=== PATIENT | female | born 1960 | race Caucasian/White ===

== ENCOUNTER → 2024-02-08 18:33 | Outpatient (REF) | payer OTHER, SELFPAY | LOC: RAD 18:33 | PROVIDERS: ATTENDING PHYSICIAN Chiropractor; FAMILY PHYSICIAN Family Medicine | DX: M99.01 Segmental and somatic dysfunction of cervical region (principal); M99.03 Segmental and somatic dysfunction of lumbar region | CPT/HCPCS: 72050; 72110 ==

== ENCOUNTER → 2024-02-25 11:09 | Outpatient (REF) | payer OTHER, SELFPAY | LOC: WDC 11:09 | PROVIDERS: ATTENDING PHYSICIAN Obstetrics & Gynecology; FAMILY PHYSICIAN Family Medicine | DX: Z12.31 Encounter for screening mammogram for malignant neoplasm of breast (principal) | CPT/HCPCS: 77063; 77067 ==

== ENCOUNTER → 2024-04-11 17:07 | Outpatient (REF) | payer OTHER, SELFPAY | LOC: RAD 17:07 | PROVIDERS: ATTENDING PHYSICIAN Chiropractor; FAMILY PHYSICIAN Family Medicine | DX: M99.06 Segmental and somatic dysfunction of lower extremity (principal) | CPT/HCPCS: 73502 ==

== ENCOUNTER → 2024-05-01 15:03 | Outpatient (REF) | payer OTHER, SELFPAY | LOC: PAVMRI 15:03 | PROVIDERS: ATTENDING PHYSICIAN Chiropractor; FAMILY PHYSICIAN Family Medicine | DX: M99.06 Segmental and somatic dysfunction of lower extremity (principal) | CPT/HCPCS: 73721 ==

== ENCOUNTER 2024-12-20 08:22 | Emergency (ER) | payer OTHER, SELFPAY ==
[2024-12-20 08:31] VITALS: BP 143/100
[2024-12-20 08:53] VITALS: BP 116/87
[2024-12-20 09:00] VITALS: BP 109/81
[2024-12-20] MEDS: ZOFRAN 4 MG IV (09:01)
[2024-12-20] MEDS: NSS 1000 IV (09:01)
[2024-12-20] MEDS: PROTONIX IV 40 MG IV (09:01)
[2024-12-20 09:05] LABS: Hematocrit 40.3 % (37.0-47.0); Hemoglobin 14.5 g/dL (12.0-16.0); Mean Corp Hgb Conc. 36.0 g/dL (33.0-37.0); Mean Corpuscular Volume 88.6 fL (81.0-99.0); Nucleated Red Blood Cells % 0 %; Platelet Count 236 10^3/uL (130-400); Red Cell Dist. Width 12.1 % (11.5-14.5)
[2024-12-20 09:19] LABS: ALT (SGPT) 31 U/L (0-35); AST (SGOT) 32 U/L (14-36); Albumin 4.4 g/dl (3.5-5.0); Alkaline Phosphatase 58 U/L (38-126); Blood Urea Nitrogen 18 mg/dl (7-17); Calcium 9.6 mg/dl (8.4-10.2); Carbon Dioxide 26 mmol/L (22-30); Chloride 104 mmol/L (98-107); Glucose 85 mg/dl (70-99); Lipase 176 U/L (23-300); Potassium 4.0 mmol/L (3.5-5.1); Sodium 137 mmol/L (135-145); Total Protein 7.3 g/dl (6.3-8.2); eGFR > 60.00
[2024-12-20 09:41] LABS: Magnesium 2.1 mg/dl (1.6-2.3)
[2024-12-20 10:00] VITALS: BP 132/80
[2024-12-20] MEDS: NSS 500 IV (10:15)
[2024-12-20] MEDS: COMPAZINE 10 MG IV (10:15)
--- NOTE | 2024-12-20 10:32 | ED.GENMED ---
History of Present Illness
General
Chief Complaint: Abdominal Symptoms
Source: patient
Exam Limitations: none
Time Seen by Provider: 12/20/24 08:37
Nursing documentation reviewed up to this point in time: agreed with
History of Present Illness
History of Present Illness:
Pt presents to ED secondary to persistent nausea/vomiting over the past 24hrs and unable to keep anything down. Pt has started to notice fatigue and mild lightheadedness today, prompting her visit to ED.
Past History
Past History
ED Past Medical History: Psychiatric (Generalized anxiety disorder)
ED Past Surgical History: Gynecological
Social History
Tobacco: Non-smoker
Drug: None
Review of Systems
Review of Systems
Allergies reviewed?: Yes
All Other Systems: ROS reviewed and negative except as documented in HPI and ROS
Constitutional: Reports no symptoms
Respiratory: Reports no symptoms
Cardiac: Reports no symptoms
ABD/GI: Reports nausea and vomiting
Musculoskeletal: Reports no symptoms
Skin: Reports no symptoms
Neurological: Reports dizzy
Phy Exam
Physical Exam
Physical Exam:
General: well appearing female, in mild distress. afebrile
Heent: nc/at. eomi.
Lungs: cta
Heart: rrr. no murmur
Abd: soft and nontender. no distention
Neuro: aao x 3. no focal neurological deficit
Skin: warm to touch. no rash
Psych: pleasant and cooperative
Course
Orders/Labs/Results
Orders:
Orders
12/20/24 08:48
Complete Blood Count/With Diff Urgent
Comprehensive Metabolic Panel Urgent
Lipase Urgent
Magnesium Urgent
12/20/24 08:53
Add On- LAB Urgent
Tests Added?: magnesium
12/20/24 08:54
0.9% Sodium Chloride 1000 ml [Nss] 1,000 ml IV BOLUS
Ondansetron Injectable [Zofran] 4 mg IV NOW STA
Pantoprazole [Protonix IV] 40 mg IV NOW STA
12/20/24 08:55
Electrocardiogram (*1) Urgent
Reason for Study: QTc Monitoring
EKG- Treatment ONCE
12/20/24 10:08
Prochlorperazine [Compazine] 10 mg IV NOW STA
12/20/24 10:09
0.9% Sodium Chloride 500 ml [Nss] 500 ml IV BOLUS
Abnormal Lab Results
12/20/24
08:48
MCH 31.9 H pg
(27.0-31.0)
BUN 18 H mg/dl
(7-17)
12/20/24 08:48
12/20/24 08:48
Vital Signs
Initial and Last Documented VS:
Initial Vital Signs
Temp Pulse Resp BP Pulse Ox
98.9 F 98 18 143/100 99
12/20/24 08:31 12/20/24 08:31 12/20/24 08:31 12/20/24 08:31 12/20/24 08:31
Last Documented Vital Signs
Temp Pulse Resp BP Pulse Ox
98.9 F 98 18 120/81 100
12/20/24 08:31 12/20/24 08:31 12/20/24 08:31 12/20/24 11:00 12/20/24 11:30
MDM/Problems Addressed
MDM/Problems Addressed:
Patient reports significant improvement symptoms after treatment. Patient otherwise remains afebrile, hemodynamically stable, and nontoxic-appearing, during extended course of observation in ED. Patient's presenting symptoms may be secondary to
viral illness versus potential reaction to Zepbound treatment. Patient will be advised bland diet along with continual hydration at home, as well as PCP follow-up. Advised return to ED with worsening symptoms. Patient expresses understanding at
time of discharge.
*Pulse Oximetry
SaO2: 99
Oxygen Mode of Delivery: Room air
Patient hypoxic: no
*EKG
Interpreted by ED Provider?: Yes
EKG Intrepretation Date: 12/20/24
Heart Rate: 74
Rate: normal
Rhythm: sinus
Jay Em: left axis deviation
*Critical Care Note
Total Time (30-74mins, 75-104mins- exclusive of procedures): Not Applicable
ED Attending Note
-
Portions of this chart may have been created with voice recognition software.� Occasional wrong word or��sound alike� substitutions may have occurred due to the inherent limitations of voice recognition software.
Discharge Plan
Departure
Patient Disposition: Home (Routine Discharge)
Date of Disposition: 12/20/24
Time of Disposition: 11:49
Patient with high blood pressure during this ER visit?: Yes
Condition: Good
Discharge Problem:
Nausea and vomiting
Instructions: [place] Diet, Nausea and Vomiting, Adult (DC)
Prescriptions:
New
ondansetron 4 mg Tablet,Disintegrating
4 mg PO TIDPRN PRN (Reason: nausea/vomiting) Qty: 12 0RF
No Action
buspirone 5 MG tablet
7.5 mg PO TID
lorazepam 1 MG tablet
0.5 mg PO QPM
atorvastatin 10 MG tablet
10 mg PO DAILY
citalopram 20 MG tablet
40 mg PO DAILY
ropinirole 0.25 MG tablet
0.25 mg PO QPM
sucralfate 1 GRAM tablet
1 g PO QID Qty: 40 2RF
ondansetron [Zofran ODT] 8 MG tablet,disintegrating
8 mg PO TID PRN (Reason: nausea/vomiting) Qty: 30 0RF
pantoprazole 40 MG tablet,delayed release (DR/EC)
40 mg PO BID Qty: 20 2RF
Referrals:
Frank Clark MD [Family Provider, Family Practice]
Stand Alone Forms: Return to Work
Activity Restrictions/Additional Instructions:
As discussed, please follow-up with your primary care physician for reevaluation. Please consider return to ED with worsening symptoms. Your prescription has been sent electronically to [facility] pharmacy in [place].
Interventions
Interventions:
*Risk Screen - Suicide Last Done: 12/20/24 08:31
*General Assessment Last Done: 12/20/24 08:31
*Neglect/Abuse Screening Last Done: 12/20/24 08:31
*ED- Fall Risk Assessment Last Done: 12/20/24 08:48
*ED COVID-19 Vaccine History Last Done: 12/20/24 08:48
*Nursing Disposition Last Done: 12/20/24 11:59
XO-Pjfpyb-Pthjonppix Assessment Last Done: 12/20/24 08:48
Discharge Date and Time
Discharge Date/Time: 12/20/24 12:02
Print Language: TELUGU
[2024-12-20 11:00] VITALS: BP 120/81
== END 2024-12-20 12:02 | disposition home or self-care (01) ==
LOC: EMR 08:22
PROVIDERS: EMERGENCY PHYSICIAN Emergency Medicine; FAMILY PHYSICIAN Family Medicine
DX: R11.2 Nausea with vomiting, unspecified (principal); F41.1 Generalized anxiety disorder
CPT/HCPCS: 99284; 96374; 96375 ×2; 96361; 80053; 83690; 83735; 85025; 93005